=== PATIENT | male | born 1950 | race Caucasian/White ===

== ENCOUNTER 2019-02-09 14:05 | Inpatient (IN) | payer MEDICARE, OTHER, SELFPAY ==
[2019-02-09] VITALS (18 sets, daily range): BP systolic 106–151; BP diastolic 69–103; PULSE 81–102; RESP 18–31; TEMP 36.6–36.8; O2SAT 92–100; BMI 34.8; BMI 34.9; BMI 34.0
--- NOTE | 2019-02-09 14:07 | NURSING ---
NO OLD EKGS
--- NOTE | 2019-02-09 14:25 | EKG12_ITS ---
Test Reason : Blood Pressure : / mmHG Vent. Rate : 085 BPM Atrial Rate : 085 BPM P-R Int : 218 ms QRS Dur : 102 ms QT Int : 378 ms P-R-T Axes : 055 029 005 degrees QTc Int : 449 ms Sinus rhythm with 1st degree A-V block Otherwise normal ECG Confirmed by STEVIE ALAN, LINDA ([id number]), publication editor JADA CORBETT ([id number]) on 02/16/2019 11:11:46 AM Referred By: Ying Davidson Confirmed By:LINDA HUBBARD MD
--- NOTE | 2019-02-09 14:25 | CT_ITS ---
STUDY: CTA CHEST REASON FOR EXAM: Male, 68 years old. Syncopal episode. CPR. RADIATION DOSAGE (If Supplied By Facility): CTDIvol = ( 17.41 ) mGy, DLP = ( 466.53 ) mGycm TECHNIQUE: The examination was performed with the intravenous administration of IV Isovue 370 100. Post-processing of the angiographic images was performed, with multiplanar reformation and 3D reconstruction. Individualized dose optimization techniques were used for this CT. COMPARISON: None. FINDINGS: Normal enhancement of the main pulmonary artery and right and left pulmonary arteries. Normal enhancement of the bilateral peripheral pulmonary arteries. There is no demonstrated pulmonary embolism. Normal thoracic aorta and visualized great vessels. There is no demonstrated aortic dissection. Normal heart and pericardium. There are visualized mediastinal lymph nodes, which are within normal size limits, and with normal morphology. Normal hilar regions. Normal visualized trachea and bronchi. There is elevation of the right hemidiaphragm. Minimal increased markings at the lung bases slightly worse on the right side Normal pleura. Normal chest wall structures. There are degenerative changes of thoracic spine. Normal visualized upper abdomen. CT/CTA Chest W/WO Contrast IMPRESSION: No evidence of pulmonary embolus. Mild increased markings at the lung bases suggestive of linear scarring. Electronically Signed: Quincy Wagner, at 15:41 EDT , Service support ,
[2019-02-09] MEDS: Aspirin 81 MG TAB.CHEW 324 MG PO (14:35)
[2019-02-09 14:36] LABS: Absolute Lymphocyte Count 3.51 X10^3/uL (0.83-4.51); Basophil# 0.04 X10^3/uL; Basophil% 0.6 % (0-1); Eosinophil# 0.12 X10^3/uL; Eosinophils% 1.7 % (0-5); Hematocrit 43.7 % (40-54); Hemoglobin 14.3 g/dL (13.0-16.5); Lymphocyte # 3.51 X10^3/ul (4.0); Lymphocyte % 48.8 % (19-41); Mean Corp Hgb Conc 32.7 g/dL (32-36); Mean Corpuscular Hgb 32.9 pg (27.0-32.0); Mean Corpuscular Volume 100.5 fL (80-94); Mean Platelet Vol. 10.5 fl (6.2-12.0); Monocyte# 0.47 X10^3/uL; Monocyte% 6.5 % (0-10); NRBC Flagged by Analyzer 0 % (0-5); Neutrophil % 41.7 % (47-70); Platelet Count 192 K/mm3 (150-450); RBC Distribution Width CV 14.3 % (11.6-14.6); RBC Distribution Width SD 53.2 fl (35.1-43.9); Red Blood Count 4.35 M/mm3 (4.6-6.2); White Blood Count 7.2 K/mm3 (4.4-11.0)
[2019-02-09 14:44] LABS: International Normalized Ratio 1.1; Prothrombin Time (Protime)PT. 13.7 SECONDS (11.7-14.9)
[2019-02-09 14:45] LABS: Partial Thromboplast Time 27.9 Seconds (24.1-36.2)
[2019-02-09 14:53] LABS: Anion Gap 8 (5-15); BUN 17 mg/dL (7-18); BUN/Creat Ratio 13.8 RATIO (10-20); Calcium,Total 8.5 mg/dL (8.5-10.1); Chloride 105 mmol/L (98-107); Creatinine, Serum 1.23 mg/dL (0.70-1.30); EST Glomerular Filtration Rate 62 mL/min (>60); Est Glom Filt Rate - Afr Amer 75 mL/min (>60); Glucose 123 mg/dL (74-106); Potassium 3.8 mmol/L (3.5-5.1); Sodium Level 141 mmol/L (136-145)
--- NOTE | 2019-02-09 15:18 | ED.DCSUM_ITS ---
- ER Visit Summary Date of Service: 02/09/19 Chief Complaint: Post CPR History of Present Illness: The patient is a 68 M who was at outpatient surgery, he was having a C4-C7 right-sided nerve ablation by Dr. Castellano. He completed the procedure, and then during recovery, he had a loss of consciousness. The patient woke up with people around him. According to records, he had a brief loss of consciousness. He had no pulse or respirations noted. CPR was started and he received epinephrine, 1 dose. The CPR lasted about 4 minutes. They were not able to check a rhythm. He regained consciousness. He complains of some chest pain but has no other associated symptoms. He was feeling well prior to the events and prior to the procedure today. He has chronic shoulder and neck pain. He has a remote history of pulmonary embolism but does not take blood thinners. He does take testosterone among his other medications. He does not smoke. He had a recent airline flight to [place]. Physical Examination: Afebrile and vital signs unremarkable. 100% on nasal cannula. Patient is alert and oriented. No acute distress. Heart regular rate and rhythm. Chest nontender. Lungs clear bilaterally. Abdomen soft and nontender. Skin appears unremarkable without pallor, diaphoresis. Good pulses and sensation in his extremities. Calves are nontender and supple. Test Results: EKG showed sinus rhythm with a first-degree heart block at a rate of 85. No sign of acute ischemia or infarction pattern. CBC, BMP, troponin unremarkable. Coags unremarkable. CTA pending. Emergency Department Course and Treatment: Patient has some mild chest pain. He thinks it might be from the CPR. He denies any history of ACS. He does have a history of PE. He was placed on a monitor. EKG was done. Will check labs and CTA. Patient will need admission. Oncoming doctor will check the CTA results. Treatment Plan: As above Disposition: Admission Impression: 1. Syncope This note was generated with [employer] dictation software. It may contain incorrect words, spelling, and punctuation that were not noted in review of the chart prior to signing ED Disposition - Plan for ED Patient: Referrals: [facility] [Other]
--- NOTE | 2019-02-09 15:40 | NURSING ---
ICU S/P CARDIAC ARREST PAINTSIL
--- NOTE | 2019-02-09 16:49 | CHAPLAIN ---
Type of Pastoral Visit _x__ Initial Visit ___ Follow-up Visit ___ On-call Visit ___ General Patient Visit ___ Spiritual Assessment ___ Family Conference ___ Bereavement ___ Rapid Response ___ Code Blue ___ Other (describe below) Pastoral Care Referral From _x__ Patient ___ Family ___ Nurse ___ Physician ___ Sales Support Rep ___ Molecular Spectroscopist ___ Other (describe below) Sacrament/Intervention _x__ Active listening ___ Anointing ___ Confucianist ___ Bereavement ___ Communion ___ Macie exploration ___ ___ Life review _x__ Prayer ___ Reconciliation ___ Sacrament of Sick _x__ Supportive presence ___ Wedding ___ Other (describe below) Pastoral Comments patient came from OR to ED and will now be transferred to ICU; spouse is with pt; both welcome spiritual support and prayer
--- NOTE | 2019-02-09 16:56 | ED.RN ---
report called to swati johnson
--- NOTE | 2019-02-09 16:57 | HP.PCM_ITS ---
<Hemant Kign - Last Filed: 02/09/19 16:57> Problem List (1) Syncope Status: Acute (2) DDD (degenerative disc disease) Status: Chronic (3) History of pulmonary embolism Status: Chronic History of Present Illness Date of Admission: 02/09/19 Chief Complaint: post cpr The patient is a 68 year old M with pmhx of DDD for which he has had multiple sp inal procedures, hx of PE no longer on anticoagulation, and hx of multiple syncopal episodes who presented to the ER from ambulatory surgery. He underwent a C4/5/[address] Sauceda. In the PACU he reportedly woke up, asked for a glass of water, and then lost consciousness. He does not remember this. He also does not remember feeling any lightheadedness dizziness or tunnel vision. The staff could not find a pulse and initiated CPR and Epi x1. After several minutes he spontaneously regained consciousness and was sent to the ER. He reports that he has had periprocedural syncope 3 times, and also had syncope when he was diagnosed with a PE. It is not clear if he actually had a rhythm change or syncope. Currently he describes some chest soreness which is worse with palptation and moving his arms and shoulders. He planned to leave AMA however his convinced him to stay and he says he feels fine now. The CTA of the chest did not show PE. He also has low O2 levels on the monitor and is on O2. He states that this also always happens after procedures. [] Past Medical History Past Medical History (Chronic Problems): Chronic Problems DDD (degenerative disc disease) (Chronic) History of pulmonary embolism (Chronic) Recurrent syncope (Chronic) Allergies belladonna alkaloids Allergy (Verified 02/09/19 14:16) Hives Home Medications: Ambulatory Orders Medication Instructions Recorded Baclofen 20 mg PO TID 02/09/19 Gabapentin [Neurontin] 300 mg PO TID 02/09/19 Meloxicam [Mobic] 7.5 mg PO BID 02/09/19 Pantoprazole Sodium [Protonix] 20 mg PO DAILY 02/09/19 Testosterone Cypionate 100 mg IM QMONTH 02/09/19 [Depo-Testosterone] Psychiatric History: No pertinent psych hx Lives: Spouse/ Significant Other Smoking Status: Never smoker Tobacco Use: Non-smoker Alcohol: Rare Drugs: None - *Family History Paternal History Items: - - liver disease Maternal History Items: No pertinent history Review of Systems Constitutional: Denies: Chills, Fever, Weight Change HEENT: Denies: Head Aches, Sinus Congestion, Sinus Drainage Cardiovascular: Reports: Chest Pain, Syncope. Denies: Edema, Light Headedness, Palpitations Respiratory: Denies: Cough, Shortness of breath at rest, Sputum production Gastrointestinal: Denies: Abdominal Pain, Nausea, Vomiting Genitourinary: Denies: Dysuria Musculoskeletal: Denies: Joint Pain, Joint Tenderness Skin: Denies: Rash, Wounds Neurological: Denies: Numbness, Tingling, Focal weakness Psychiatric: Denies: Anxiety, Depression, Homicidal Ideations, Suicidal Ideations Hematologic/ Lymphatic: Denies: Easy Bruising, Easy Bleeding VTE Information - Inpt Only VTE Present on Admission: No VTE Mechan Device Prophylaxis: None VTE Pharm Prophylaxis ordered?: Yes Patient Problems: Active and Suspected Problems Syncope (Acute) Cardiac arrest (Acute) - Physical Exam General: Alert, Oriented x3, Cooperative HEENT: Atraumatic, PERRLA, EOMI, Normocephalic Neck: Supple, No JVD, Negative Carotid Bruits Lungs: Clear to auscultation, Normal air movement Cardiovascular: Regular rate, No murmurs Abdomen: Bowel Sounds Present, Soft, Non Tender Extremities: No edema, Capillary Refill Less than 3 Seconds Skin: No rashes, No breakdown Musculoskeletal: No Tenderness to Palpation of Joints or Extremities Neurological: Cranial nerves II-XII grossly intact Psych/Mental Status: Normal Affect, Appropriate, Alert and oriented to time, place, person, mood and affect Vital Signs Temp Pulse Resp BP Pulse Ox 97.9 F 92 22 H 128/87 H 95 02/09/19 14:06 02/09/19 16:32 02/09/19 16:13 02/09/19 16:32 02/09/19 16:13 Oxygen Flow Rate (L/min) 4 Oxygen Delivery Method Room Air Weight: 246 lb 7.629 oz Body Mass Index (BMI) 34.8 Laboratory Tests Past 24 Hrs 02/09/19 02/09/19 02/09/19 14:15 14:15 14:15 WBC 7.2 RBC 4.35 L Hgb 14.3 Hct 43.7 MCV 100.5 H MCH 32.9 H MCHC 32.7 RDW Std Deviation 53.2 H RDW Coeff of William 14.3 Plt Count 192 MPV 10.5 Immature Gran % (Auto) 0.700 Neut % (Auto) 41.7 L Lymph % (Auto) 48.8 H [place] % (Auto) 6.5 Eos % (Auto) 1.7 Baso % (Auto) 0.6 Absolute Neuts (auto) 3.0 Absolute Lymphs (auto) 3.51 Nucleated RBC % 0 PT 13.7 INR 1.1 APTT 27.9 Sodium 141 Potassium 3.8 Chloride 105 Carbon Dioxide 28.0 Anion Gap 8 BUN 17 Creatinine 1.23 Estim Creat Clear Calc 57.70 Est GFR (MDRD) Af Amer 75 Est GFR (MDRD) Non-Af 62 BUN/Creatinine Ratio 13.8 Glucose 123 H Calcium 8.5 Troponin I 0.018 Assessment/Plan All Active Problems Syncope (Acute) Cardiac arrest (Acute) 1. Syncope vs Cardiopulmonary arrest - suspect syncope. Awoke after CPR and Epi x 1. He has some musculoskeletal chest pain. EKG is negative. No cahx of coronary dz. Hx of multiple episodes of syncope 3x with procedures, and syncope with episode of PE however CTA does not show PE. He will be monitored in the ICU overnight. Consult cardiology. Obtain Echo. He may need an event monitor. AM EKG. Cycle enzymes. Check orthos. Incentive spirometer for post op hypoxia. 2. DDD - cervical ablation today prior spinal surgery x 3. Pt of Dr. Sauceda. 3. Hx PE - no longer on OAC. Reportedly had hypercoag workup and was negative. DVT ppx: lovenox DC planning: Monitor in ICU overnight, if no events possibly home tomorrow. This patient was seen by Hemant King PA-C under the supervision of Dr. Davidson. <Ying Davidson - Last Filed: 02/09/19 17:39> Problem List (1) Cardiac arrest Status: Acute (2) DDD (degenerative disc disease) Status: Chronic Qualifiers: Spinal region: mid-cervical Mid-cervical spinal level: C4-C5 Qualified Code(s): M50.321 - Other cervical disc degeneration at C4-C5 level (3) History of pulmonary embolism Status: Chronic (4) Recurrent syncope Status: Chronic History of Present Illness The patient is a 68 year old M [] Past Medical History Allergies belladonna alkaloids Allergy (Verified 02/09/19 14:16) Hives - Physical Exam Vital Signs Temp Pulse Resp BP Pulse Ox 97.9 F 92 22 H 128/87 H 95 02/09/19 14:06 02/09/19 16:32 02/09/19 16:13 02/09/19 16:32 02/09/19 16:13 Oxygen Flow Rate (L/min) 4 Oxygen Delivery Method Room Air Weight: 107.6 kg Body Mass Index (BMI) 34.0 Laboratory Tests Past 24 Hrs 02/09/19 02/09/19 02/09/19 14:15 14:15 14:15 WBC 7.2 RBC 4.35 L Hgb 14.3 Hct 43.7 MCV 100.5 H MCH 32.9 H MCHC 32.7 RDW Std Deviation 53.2 H RDW Coeff of William 14.3 Plt Count 192 MPV 10.5 Immature Gran % (Auto) 0.700 Neut % (Auto) 41.7 L Lymph % (Auto) 48.8 H [place] % (Auto) 6.5 Eos % (Auto) 1.7 Baso % (Auto) 0.6 Absolute Neuts (auto) 3.0 Absolute Lymphs (auto) 3.51 Nucleated RBC % 0 PT 13.7 INR 1.1 APTT 27.9 Sodium 141 Potassium 3.8 Chloride 105 Carbon Dioxide 28.0 Anion Gap 8 BUN 17 Creatinine 1.23 Estim Creat Clear Calc 57.70 Est GFR (MDRD) Af Amer 75 Est GFR (MDRD) Non-Af 62 BUN/Creatinine Ratio 13.8 Glucose 123 H Calcium 8.5 Troponin I 0.018 Assessment/Plan This patient was seen in conjunction with MEGHA Wilson. I have independently interviewed and examined the patient and reviewed pertinent historical, laboratory, and other data. Please refer to MEGHA Wilson note for his patient's presentation, findings, and recommendations. I have reviewed and his note and concur with his documentation 68-year-old male with past medical history of PE, provoked, off anticoagulation after taking for 7 months, history of recurrent syncope status post procedures who was in the surgery center today having a C4 C5-C6-C7 spinal ablation. Patient tolerated the procedure and was taken to PACU. He recovered from anesthesia and ask for a glass of water. He said to have passed out and lost a pulse. CPR was started on him and he received 1 dose of epinephrine. He had return of spontaneous circulation and was awake by the time he got here. At the time of the admission, he denied any complaints, he felt improved except for mild midsternal tenderness which she rates as 2/10, worse when his chest is palpated, which is likely from his chest compressions His vitals have remained stable in the emergency room except for hypoxia with Spo2 89-92%, he was on [address] of the chest was negative for acute PE Physical Exam: Gen: Obese, comfortable, not pale, not jaundiced CVS:HS I +II, regular, no murmurs, midsternal tenderness on palpation RESP: Clinically clear to auscultation GI: Obese, BS present and normal, soft, nontender, no palpable organs EXT:No edema ASSESSMENT: 1. Status post cardiac arrest vs syncope 2. Degenerative disc disease, status post multiple surgeries, status post cervical ablation 2 C4 C5-C6-C7 today 3. History of PE 4. Acute hypoxic respiratory insufficiency 5. Possible undiagnosed sleep apnea 6. Code status - Full code Plan: Admit to ICU for monitoring overnight 2D echo Cardiology consult Hold baclofen, gabapentin, meloxicam PRN morphine and oxycodone for pain Encourage use of incentive spirometer Patient might need a Holter monitor on discharge Code Visit Inpatient E&M: [id number] Init Hosp L3
[2019-02-09] MEDS: Meloxicam 7.5 MG Tablet PO (21:28)
[2019-02-09] MEDS: Baclofen 10 MG Tablet 20 MG PO (21:28)
[2019-02-09] MEDS: Gabapentin 300 MG Capsule PO (21:28)
[2019-02-10] VITALS (17 sets, daily range): BP systolic 103–117; BP diastolic 61–75; PULSE 70–90; RESP 18–32; TEMP 36.3–36.8; O2SAT 92–96
[2019-02-10] MEDS: Baclofen 10 MG Tablet 20 MG PO (04:58)
[2019-02-10 05:09] LABS: Absolute Lymphocyte Count 2.03 X10^3/uL (0.83-4.51); Absolute Neutrophil Count 6.7 X10^3/uL (2.0-7.7); Basophil# 0.03 X10^3/uL; Basophil% 0.3 % (0-1); Eosinophil# 0.11 X10^3/uL; Eosinophils% 1.1 % (0-5); Hematocrit 43.3 % (40-54); Hemoglobin 14.2 g/dL (13.0-16.5); Lymphocyte # 2.03 X10^3/ul (4.0); Lymphocyte % 20.9 % (19-41); Mean Corp Hgb Conc 32.8 g/dL (32-36); Mean Corpuscular Hgb 32.3 pg (27.0-32.0); Mean Corpuscular Volume 98.4 fL (80-94); Mean Platelet Vol. 10.3 fl (6.2-12.0); Monocyte# 0.77 X10^3/uL; Monocyte% 7.9 % (0-10); NRBC Flagged by Analyzer 0 % (0-5); Neutrophil # 6.74 X10^3/uL (2.7-7.7); Neutrophil % 69.4 % (47-70); Platelet Count 204 K/mm3 (150-450); RBC Distribution Width CV 14.6 % (11.6-14.6); RBC Distribution Width SD 52.4 fl (35.1-43.9); White Blood Count 9.7 K/mm3 (4.4-11.0)
[2019-02-10 05:26] LABS: ALB/GLOB Ratio 1.2 RATIO (0.9-2.4); AST(SGOT) 30 U/L (15-37); Alanine Aminotransfer ALT/SGPT 38 U/L (16-61); Albumin, Serum 3.7 g/dL (3.2-5.0); Alkaline Phosphatase 59 U/L (45-117); Anion Gap 7 (5-15); BUN 19 mg/dL (7-18); BUN/Creat Ratio 17.3 RATIO (10-20); Calcium,Total 8.4 mg/dL (8.5-10.1); Chloride 105 mmol/L (98-107); EST Glomerular Filtration Rate 70 mL/min (>60); Est Glom Filt Rate - Afr Amer 85 mL/min (>60); Estimated Creatinine Clearance 64.52 ml/min; Globulin 3.2 g/dL (2.2-4.2); Glucose 113 mg/dL (74-106); Potassium 3.8 mmol/L (3.5-5.1); Protein, Total 6.9 g/dL (6.4-8.2); Sodium Level 140 mmol/L (136-145)
[2019-02-10] MEDS: Gabapentin 300 MG Capsule PO (08:11)
[2019-02-10] MEDS: Pantoprazole Sodium 20 MG Tablet PO (08:11)
[2019-02-10] MEDS: Meloxicam 7.5 MG Tablet PO (08:11)
--- NOTE | 2019-02-10 09:10 | CM.UR ---
RN CM Assessment Introduced role of RN CM to patient. Patient is alert and able to participate in RN CM Assessment. Care providers, pharmacy, and demographics verified. No family at bedside. Presentation: Became non-responsive after nerve ablation procedure. No pulse found. CPR performed. Admit Dx: Syncope Re-Admit: No Barriers/Issues: None PCP: morteza gallegos Specialists: Dr. maynard Preferred Pharmacy: [facility] Insurance: [employer] and [employer] ([facility] supplement) Rx Benefit: Yes LNOK: [place] LW/HPOA: Yes. [place], , Is HPOA. Will not allow us to have on file. States it is bad luck. Explained we need to have access to them should the need arise. states they are in the car. Living Arrangements: 2 story home, no access issues. ADL?s: Independent with all ADLs. Still works. Transportation: Self DME: Walker DME co: none HHC: None SNF: None Goal: Return home. DC PLAN: Home, No needs. Miquel Espinosa RN, CCM.
--- NOTE | 2019-02-10 09:21 | PN_ITS ---
Patient Problems: Active and Suspected Problems Syncope (Acute) Cardiac arrest (Acute) Subjective: Feels good. Does claim of some chest pain where they did the chest compressions. States, chronically, his oxygen will be low when he lays flat but is better when he is upright and active. Currently, his oxygen is ranging in the low 90s. Vitals/I&O's: Vital Signs Temp Pulse Resp BP Pulse Ox 36.7 C 90 21 H 103/67 92 02/10/19 08:00 02/10/19 08:00 02/10/19 08:00 02/10/19 08:00 02/10/19 08:00 Oxygen Flow Rate (L/min) 2 Oxygen Delivery Method Room Air Weight: 107.6 kg Body Mass Index (BMI) 34.0 Intake and Output for Last 24 Hours 02/08/19 02/09/19 02/10/19 23:59 23:59 23:59 Intake Total 250 / 730 1000 / 1000 Output Total 550 / 550 1225 / 1225 Balance -300 / 180 -225 / -225 General: Alert, No apparent distress HEENT: Atraumatic, Normocephalic Neck: No Nodes, Thyroid Normal Size and Texture Lungs: Clear to auscultation, Normal air movement, No rhonchi, No wheeze Cardiovascular: Regular rate, Regular Rhythm, Normal S1, Normal S2 Abdomen: Bowel Sounds Present, Soft, Non Tender, Non-Distended Extremities: No edema, No Calf Tenderness Skin: No rashes, No breakdown Musculoskeletal: No Tenderness to Palpation of Joints or Extremities, No Muscle Wasting Psych/Mental Status: Normal Affect, Appropriate Laboratory Results 02/09/19 14:15: WBC 7.2, RBC 4.35 L, Hgb 14.3, Hct 43.7, MCV 100.5 H, MCH 32.9 H , MCHC 32.7, RDW Std Deviation 53.2 H, RDW Coeff of William 14.3, Plt Count 192, MPV 10.5, Immature Gran % (Auto) 0.700, Neut % (Auto) 41.7 L, Lymph % (Auto) 48.8 H, [place] % (Auto) 6.5, Eos % (Auto) 1.7, Baso % (Auto) 0.6, Absolute Neuts (auto) 3.0, Absolute Lymphs (auto) 3.51, Nucleated RBC % 0 10/18/19 14:15: PT 13.7, INR 1.1, APTT 27.9 02/09/19 14:15: Sodium 141, Potassium 3.8, Chloride 105, Carbon Dioxide 28.0, Anion Gap 8, BUN 17, Creatinine 1.23, Estim Creat Clear Calc 57.70, Est GFR (MDRD) Af Amer 75, Est GFR (MDRD) Non-Af 62, BUN/Creatinine Ratio 13.8, Glucose 123 H, Calcium 8.5, Troponin I 0.018 02/09/19 18:00: Troponin I 0.052 H 02/09/19 20:15: Troponin I 0.056 H 02/10/19 05:00: WBC 9.7, RBC 4.40 L, Hgb 14.2, Hct 43.3, MCV 98.4 H, MCH 32.3 H, MCHC 32.8, RDW Std Deviation 52.4 H, RDW Coeff of William 14.6, Plt Count 204, MPV 10.3, Immature Gran % (Auto) 0.400, Neut % (Auto) 69.4, Lymph % (Auto) 20.9, [place] % (Auto) 7.9, Eos % (Auto) 1.1, Baso % (Auto) 0.3, Absolute Neuts (auto) 6.7, Absolute Lymphs (auto) 2.03, Nucleated RBC % 0 02/10/19 05:00: Sodium 140, Potassium 3.8, Chloride 105, Carbon Dioxide 28.0, Anion Gap 7, BUN 19 H, Creatinine 1.10, Estim Creat Clear Calc 64.52, Est GFR (MDRD) Af Amer 85, Est GFR (MDRD) Non-Af 70, BUN/Creatinine Ratio 17.3, Glucose 113 H, Calcium 8.4 L, Total Bilirubin 0.70, AST 30, ALT 38, Alkaline Phosphatase 59, Total Protein 6.9, Albumin 3.7, Globulin 3.2, Albumin/Globulin Ratio 1.2 Current Medications Acetaminophen (Tylenol) 650 mg PO Q6H PRN PRN PRN Reason: Pain Score 1-3/Temp > 100.7 F Baclofen (Lioresal) 20 mg PO TID PUSHPA Last Admin: 02/10/19 04:58 Dose: 20 mg Documented by: Gabapentin (Neurontin) 300 mg PO TIDCM [facility] Last Admin: 02/10/19 08:11 Dose: 300 mg Documented by: Heparin Sodium (Porcine) (Heparin Na) 5,000 unit SC Q8 [facility] Last Admin: 02/10/19 05:07 Dose: Not Given Documented by: Meloxicam (Mobic) 7.5 mg PO BID [facility] Last Admin: 02/10/19 08:11 Dose: 7.5 mg Documented by: Morphine Sulfate () 2 mg IV Q4H PRN PRN PRN Reason: Pain Score 6-10/10 Ondansetron HCl (Zofran) 4 mg IV Q8H PRN PRN PRN Reason: NAUSEA/VOMITING Oxycodone HCl (Oxyir) 5 mg PO Q6H PRN PRN PRN Reason: Pain Score 6-10/10 Pantoprazole Sodium (Protonix) 20 mg PO DAILY [facility] Last Admin: 02/10/19 08:11 Dose: 20 mg Documented by: STROKE Vital Signs/Narrative: Vital Signs Temp Pulse Resp BP Pulse Ox 02/10/19 08:00 36.7 C 90 21 H 103/67 92 02/10/19 07:00 70 24 H 107/73 96 02/10/19 06:51 77 02/10/19 06:25 94 02/10/19 06:00 77 26 H 108/73 94 Medical Necessity - Tobacco Use Smoking Status: Never smoker Tobacco Use: Non-smoker Assessment/Plan All Active Problems Syncope (Acute) Cardiac arrest (Acute) 1. Syncope * Concern for the PACU as patient had cardiac arrest because he had no palpable pulse and CPR was initiated and patient received epinephrine. Patient states that after procedures, he commonly has fainting spells. * I am favoring this actually being a vasovagal event and not true cardiac arrest. Apparently, patient was not on the cardiac catheterization technician when this occurred so cannot verify patient did have any arrhythmia though given his past history this seems unlikely. * Cardiology on consult * Echo pending * CTA of the chest was unremarkable for pulmonary embolism 2. Elevated cardiac markers * Slightly elevated * Doubt ischemic event but could be related with the chest compressions * Cardiology evaluation pending 3. VTE prophylaxis with heparin 4. Disposition: Pending cardiology evaluation. The patient will be discharged with no additional cardiac work-up is necessary or remain in the hospital until further cardiac tests can be performed. Code Visit OBSV E&M: 93932 Subsequent observation care L2
--- NOTE | 2019-02-10 11:52 | DCINST_ITS ---
- Discharge Diagnoses Current Active Problems: Current Active and Chronic Problems Syncope (Acute) DDD (degenerative disc disease) (Chronic) History of pulmonary embolism (Chronic) Cardiac arrest (Acute) Recurrent syncope (Chronic) You will use the following diet at home:: No restrictions Call your doctor if you observe: Shortness of breath, Fainting spells, Chest pain Allergies/Adverse Reactions: Allergies belladonna alkaloids Allergy (Verified 02/09/19 14:16) Hives Medications to take at Discharge Baclofen 20 mg PO TID 02/09/19 Gabapentin [Neurontin] 300 mg PO TID 02/09/19 Meloxicam [Mobic] 7.5 mg PO BID 02/09/19 Pantoprazole Sodium [Protonix] 20 mg PO DAILY 02/09/19 Testosterone Cypionate [Depo-Testosterone] 100 mg IM QMONTH 02/09/19 Primary Care Physician: [facility] [Other] - Within 2 Weeks Test Results: Test results from this visit will be discussed in further detail at your follow- up appointment, if applicable. Proposed Discharge Date: 02/10/19
--- NOTE | 2019-02-10 11:52 | PCM.DC.SUM ---
Discharge Date and Diagnosis - Problem List Patient Problems: Active and Suspected Problems Syncope (Acute) Date of Admission: 02/09/19 Date of Discharge: 02/10/19 - Primary Discharge Diagnosis Active and Suspected Problems Syncope (Acute) Cardiac arrest (Acute) - Secondary Discharge Diagnosis Chronic Problems DDD (degenerative disc disease) (Chronic) History of pulmonary embolism (Chronic) Recurrent syncope (Chronic) Hospital Course and Treatment Imaging Results: Clinical Impression(s) from Imaging Studies Chest CTA 02/09/19 14:25 IMPRESSION: No evidence of pulmonary embolus. Mild increased markings at the lung bases suggestive of linear scarring. Electronically Signed: Quincy Wagner, at 15:41 EDT , Service support , Cardiology Operations: None Procedures: 2-D Echocardiogram Summary of Care Provided: The patient is a 68 year old M Jason with a syncopal episode. Patient was undergoing a radiofrequency ablation afterward, patient was in the PACU and was unresponsive. Pulse cannot be palpated and CPR was initiated. Patient did receive chest compressions as well as epinephrine. Circulation was obtained. This occurred while patient was not actually monitored. Patient notes that he has had a history of fainting with procedures in the past and this seemed consistent with those prior episodes. But given the concern for cardiac arrest patient was brought in and had an echocardiogram cardiology evaluation. Echocardiogram was normal with ejection fraction of 55 to 60%. Discussed with cardiology earlier, and felt that this was prime more of a vasovagal episode and patient was likely hypotensive during that episode therefore, a pulse could not be palpated at that time rather than this being cardiac arrest. Patient did have a marginal elevation of his troponins at the 0.05. Is likely related with the chest compressions that he received. Patient otherwise feels well. Patient did have some low pulse ox readings when he is lying flat, but the patient states that that is chronic and his pulse ox usually goes up when he is up and ambulating. Patient otherwise feels well and will be discharged home in stable condition. [] Patient Problems: Active and Suspected Problems Syncope (Acute) - Physical Exam Vital Signs Temp Pulse Resp BP Pulse Ox 36.3 C L 77 20 H 110/71 93 02/10/19 10:00 02/10/19 11:12 02/10/19 11:00 02/10/19 11:00 02/10/19 11:00 Oxygen Flow Rate (L/min) 2 Oxygen Delivery Method Room Air Weight: 107.6 kg Body Mass Index (BMI) 34.0 Intake and Output for Last 24 Hours 02/08/19 02/09/19 02/10/19 23:59 23:59 23:59 Intake Total 250 / 730 1000 / 1000 Output Total 550 / 550 1225 / 1225 Balance -300 / 180 -225 / -225 Laboratory Tests Past 24 Hrs 02/09/19 02/09/19 02/09/19 14:15 14:15 14:15 WBC 7.2 RBC 4.35 L Hgb 14.3 Hct 43.7 MCV 100.5 H MCH 32.9 H MCHC 32.7 RDW Std Deviation 53.2 H RDW Coeff of William 14.3 Plt Count 192 MPV 10.5 Immature Gran % (Auto) 0.700 Neut % (Auto) 41.7 L Lymph % (Auto) 48.8 H [place] % (Auto) 6.5 Eos % (Auto) 1.7 Baso % (Auto) 0.6 Absolute Neuts (auto) 3.0 Absolute Lymphs (auto) 3.51 Nucleated RBC % 0 PT 13.7 INR 1.1 APTT 27.9 Sodium 141 Potassium 3.8 Chloride 105 Carbon Dioxide 28.0 Anion Gap 8 BUN 17 Creatinine 1.23 Estim Creat Clear Calc 57.70 Est GFR (MDRD) Af Amer 75 Est GFR (MDRD) Non-Af 62 BUN/Creatinine Ratio 13.8 Glucose 123 H Calcium 8.5 Total Bilirubin AST ALT Alkaline Phosphatase Troponin I 0.018 Total Protein Albumin Globulin Albumin/Globulin Ratio 02/09/19 02/09/19 02/10/19 18:00 20:15 05:00 WBC 9.7 RBC 4.40 L Hgb 14.2 Hct 43.3 MCV 98.4 H MCH 32.3 H MCHC 32.8 RDW Std Deviation 52.4 H RDW Coeff of [place] 14.6 Plt Count 204 MPV 10.3 Immature Gran % (Auto) 0.400 Neut % (Auto) 69.4 Lymph % (Auto) 20.9 [place] % (Auto) 7.9 Eos % (Auto) 1.1 Baso % (Auto) 0.3 Absolute Neuts (auto) 6.7 Absolute Lymphs (auto) 2.03 Nucleated RBC % 0 PT INR APTT Sodium Potassium Chloride Carbon Dioxide Anion Gap BUN Creatinine Estim Creat Clear Calc Est GFR (MDRD) Af Amer Est GFR (MDRD) Non-Af BUN/Creatinine Ratio Glucose Calcium Total Bilirubin AST ALT Alkaline Phosphatase Troponin I 0.052 H 0.056 H Total Protein Albumin Globulin Albumin/Globulin Ratio 02/10/19 05:00 WBC RBC Hgb Hct MCV MCH MCHC RDW Std Deviation RDW Coeff of William Plt Count MPV Immature Gran % (Auto) Neut % (Auto) Lymph % (Auto) [place] % (Auto) Eos % (Auto) Baso % (Auto) Absolute Neuts (auto) Absolute Lymphs (auto) Nucleated RBC % PT INR APTT Sodium 140 Potassium 3.8 Chloride 105 Carbon Dioxide 28.0 Anion Gap 7 BUN 19 H Creatinine 1.10 Estim Creat Clear Calc 64.52 Est GFR (MDRD) Af Amer 85 Est GFR (MDRD) Non-Af 70 BUN/Creatinine Ratio 17.3 Glucose 113 H Calcium 8.4 L Total Bilirubin 0.70 AST 30 ALT 38 Alkaline Phosphatase 59 Troponin I Total Protein 6.9 Albumin 3.7 Globulin 3.2 Albumin/Globulin Ratio 1.2 Discharge Diet: No Restrictions Discharge Activity: Return to Normal Activity Call your doctor if you observe: Shortness of breath, Fainting spells, Chest pain Home Medications: Medications to take at Discharge Baclofen 20 mg PO TID 02/09/19 Gabapentin [Neurontin] 300 mg PO TID 02/09/19 Meloxicam [Mobic] 7.5 mg PO BID 02/09/19 Pantoprazole Sodium [Protonix] 20 mg PO DAILY 02/09/19 Testosterone Cypionate [Depo-Testosterone] 100 mg IM QMONTH 02/09/19 Primary Care Physician: MIGUEL LANE [Other] - Within 2 Weeks Disposition: Home Minutes spent on discharge:: 32 Patient Condition:: Good Medical Necessity - Tobacco Use Smoking Status: Never smoker Tobacco Use: Non-smoker Meaningful Use Info Meaningful Use Diagnoses (Choose all that apply): None applicable Code Visit OBSV E&M: 50136 Observation care discharge
--- NOTE | 2019-02-10 11:58 | CON.PCM_ITS ---
Problem List (1) Recurrent syncope Status: Acute (2) Syncope Status: Acute Reason for Consult Date of Consultation: 02/10/19 Reason for Consultation: Syncope and collapse History of Present Illness: The patient is a 68 year old M with PMH of DDD s/p multiple spinal procedures, hx of PE on no anticoagulation, and also history of multiple syncopal episodes who presented to the ER from ambulatory surgery. He underwent a C4/5/[address] Sauceda. As per report, he woke up, asked for a glass of water, and then lost consciousness. CPR was initiated there was no documentation of malignant ventricular arrhythmias or prolonged pauses on telemetry, stating that the patient was not monitored at that time. It was sent to the emergency room. He had a work-up for pulmonary embolism which included a spiral CT which was negative. Echocardiogram was done today which showed no evidence of structural heart disease, pericardial effusion, normal left ventricular ejection fraction. Telemetry showed no evidence of arrhythmias. Past history is notorious for recurrent syncopal spells periprocedurally. The first and second syncopal episodes were associated with instrumentation, such as IV insertion. The third episode was apparently happening when the patient was worked up for pulmonary embolism in the emergency room. This is his fourth episode. Past Medical History Allergies/Adverse Reactions: Allergies belladonna alkaloids Allergy (Verified 02/09/19 14:16) Hives Home Medications: Ambulatory Orders Medication Instructions Recorded Baclofen 20 mg PO TID 02/09/19 Gabapentin [Neurontin] 300 mg PO TID 02/09/19 Meloxicam [Mobic] 7.5 mg PO BID 02/09/19 Pantoprazole Sodium [Protonix] 20 mg PO DAILY 02/09/19 Testosterone Cypionate 100 mg IM QMONTH 02/09/19 [Depo-Testosterone] Past Medical History (Chronic Problems): Chronic Problems DDD (degenerative disc disease) (Chronic) History of pulmonary embolism (Chronic) Psychiatric History: No pertinent psych hx - *Family History Paternal History Items: - - liver disease Maternal History Items: No pertinent history Lives: Spouse/ Significant Other Smoking Status: Never smoker Tobacco Use: Non-smoker Alcohol: Rare Drugs: None Review of Systems - Review of Systems General: Denies: Fever, Night Sweats, Fatigue Cardiovascular: Denies: Chest Discomfort, Shortness of Breath, Orthopnea, PND, Peripheral Edema, Palpitations, Lightheadedness, Dizziness, Near Syncope, Syncope Respiratory: Denies: Cough, Sputum Production, Hemoptysis Gastrointestinal: Denies: Hematemesis, Hematochezia, Melena Genitourinary: Denies: Dysuria, Hematuria Skin: Denies: Rash Objective: Vital Signs Temp Pulse Resp BP Pulse Ox 97.4 F L 77 20 H 110/71 93 02/10/19 10:00 02/10/19 11:12 02/10/19 11:00 02/10/19 11:00 02/10/19 11:00 Oxygen Flow Rate (L/min) 2 Oxygen Delivery Method Room Air Weight: 107.6 kg Body Mass Index (BMI) 34.0 Intake and Output for Last 24 Hours 02/08/19 02/09/19 02/10/19 23:59 23:59 23:59 Intake Total 250 / 730 1000 / 1000 Output Total 550 / 550 1225 / 1225 Balance -300 / 180 -225 / -225 General: Awake, Alert, Oriented x 3 HEENT: PERRL, EOMI, Sclera Non Icteric Neck: Supple, Good ROM, No Lymph Node Enlargement Lungs: Clear to auscultation Cardiovascular: Regular Rhythm, Normal S1, Normal S2, No Murmurs, No Rubs, No Gallops Vascular: No Carotid Bruits, Normal Femoral Pulses, Normal Radial Pulses, Normal Dorsalis Pedal Pulse, Normal Posterior Tibial Pulses Abdomen: Bowel Sounds Present, Soft, Non Tender, No HSM, No Organomegaly Extremities: No Cyanosis, No Clubbing, No edema Neurological: No Focal Motor or Sensory Deficit 02/09/19 14:15: WBC 7.2, RBC 4.35 L, Hgb 14.3, Hct 43.7, MCV 100.5 H, MCH 32.9 H , MCHC 32.7, Plt Count 192, MPV 10.5, Immature Gran % (Auto) 0.700, Neut % (Auto) 41.7 L, Lymph % (Auto) 48.8 H, [place] % (Auto) 6.5, Eos % (Auto) 1.7, Baso % (Auto) 0.6, Absolute Neuts (auto) 3.0, Nucleated RBC % 0 02/09/19 14:15: PT 13.7, INR 1.1, APTT 27.9 10/18/19 14:15: Sodium 141, Potassium 3.8, Chloride 105, Carbon Dioxide 28.0, Anion Gap 8, BUN 17, Creatinine 1.23, Est GFR (MDRD) Af Amer 75, Est GFR (MDRD) Non-Af 62, BUN/Creatinine Ratio 13.8, Glucose 123 H, Calcium 8.5, Troponin I 0.018 02/09/19 18:00: Troponin I 0.052 H 02/09/19 20:15: Troponin I 0.056 H 02/10/19 05:00: WBC 9.7, RBC 4.40 L, Hgb 14.2, Hct 43.3, MCV 98.4 H, MCH 32.3 H, MCHC 32.8, Plt Count 204, MPV 10.3, Immature Gran % (Auto) 0.400, Neut % (Auto) 69.4, Lymph % (Auto) 20.9, [place] % (Auto) 7.9, Eos % (Auto) 1.1, Baso % (Auto) 0.3, Absolute Neuts (auto) 6.7, Nucleated RBC % 0 02/10/19 05:00: Sodium 140, Potassium 3.8, Chloride 105, Carbon Dioxide 28.0, Anion Gap 7, BUN 19 H, Creatinine 1.10, Est GFR (MDRD) Af Amer 85, Est GFR (MDRD) Non-Af 70, BUN/Creatinine Ratio 17.3, Glucose 113 H, Calcium 8.4 L, Total Bilirubin 0.70 Rhythm: EKG: Normal sinus rhythm, no evidence of acute ST/T wave abnormalities. ECHO: Normal left ventricular ejection fraction, no evidence of significant structural heart disease Stress Test: Cardiac Cath: PCI: CT Surgery: Holter monitor: EPS: PPM: CXR: Chest CT Scan: Assessment/Plan 1. Vasovagal syncope. No further work-up is indicated. 2. Borderline elevation of cardiac biomarkers, likely in the setting of epinephrine injection and CPR. The patient is stable to be discharged.
== END 2019-02-10 12:35 | disposition home or self-care (01) | DRG 312 ==
LOC: ED 15:13 → ICU 17:06
PROVIDERS: Admitting Provider Internal Medicine; Emergency Provider Emergency Medicine; Referring Provider Internal Medicine
DX: R55 Syncope and collapse (principal); R07.89 Other chest pain; R09.02 Hypoxemia; M50.321 Other cervical disc degeneration at C4-C5 level; G89.29 Other chronic pain; G47.30 Sleep apnea, unspecified; E66.9 Obesity, unspecified; Z68.34 Body mass index [BMI] 34.0-34.9, adult; Z79.899 Other long term (current) drug therapy; Z86.711 Personal history of pulmonary embolism
CPT/HCPCS: 71275; 80048; 80053; 84484; 85025; 85610; 85730; 93005; 93306; 97802; 99285; Q9957; Q9967; A4216; C8929